=== PATIENT | female | born 1950 | race Caucasian/White ===

== ENCOUNTER → 2020-08-12 08:43 | Outpatient (CLI) | payer OTHER, SELFPAY | PROVIDERS: Family Provider Internal Medicine Geriatric Medicine; PCP Internal Medicine Geriatric Medicine; Visit Provider Nurse Practitioner | DX: N34.3 Urethral syndrome, unspecified (principal) | CPT/HCPCS: 87077; 87086; 87186 ==

== ENCOUNTER → 2020-11-24 11:50 | Outpatient (CLI) | payer OTHER, SELFPAY | PROVIDERS: Family Provider Internal Medicine Geriatric Medicine; PCP Internal Medicine Geriatric Medicine; Visit Provider Physician Assistant | DX: N30.01 Acute cystitis with hematuria (principal) | CPT/HCPCS: 87086 ==

== ENCOUNTER → 2021-03-09 13:40 | Outpatient (CLI) | payer OTHER, SELFPAY | PROVIDERS: Family Provider Internal Medicine Geriatric Medicine; PCP Internal Medicine Geriatric Medicine; Visit Provider Nurse Practitioner Family | DX: N34.3 Urethral syndrome, unspecified (principal) | CPT/HCPCS: 87077; 87086; 87186 ==

== ENCOUNTER → 2022-07-03 08:10 | Outpatient (CLI) | payer OTHER, SELFPAY ==
[2022-07-03 08:35] LABS: Add Manual Diff / Slide Review NO; Basophils Absolute Auto 0 /uL (0-100); Basophils Percent Auto 0.5 % (0-2); Eosinophils Absolute Auto 200 /uL (0-450); Eosinophils Percent Auto 3.8 % (2-4); Hematocrit 40.9 % (36-46); Hemoglobin 13.8 g/dL (12.0-16.0); Lymphocytes Absolute Auto 1000 /uL (1100-4500); Mean Corpuscular HGB Conc 33.7 % (30-36); Mean Corpuscular Hemoglobin 30.5 PG (26-34); Mean Corpuscular Volume 90.5 fL (80-100); Monocytes Absolute Auto 700 /uL (0-900); Monocytes Percent Auto 11.9 % (3-14); Neutrophils Absolute Auto 4100 /uL (1500-7000); Neutrophils Percent Auto 67.8 % (50-75); Platelet Count 317 X10^3/uL (150-400); Red Blood Cell Count 4.52 X10^6/uL (4.0-5.2)
[2022-07-03 08:43] LABS: Hemoglobin A1C% w Est Avg Glu 5.6 % (4.0-6.0)
[2022-07-03 09:04] LABS: Alanine Aminotransferase 20 IU/L (<35); Albumin Globulin Ratio 1.4 (1.0-2.8); Alkaline Phosphatase 57 U/L (38-126); Aspartate Aminotransferase 17 IU/L (14-36); BUN Creatinine Ratio 19.7 (6-22); Bilirubin Total 0.6 mg/dL (0.2-1.3); Blood Urea Nitrogen 14 mg/dL (7-17); Calcium 9.2 mg/dL (8.4-10.2); Carbon Dioxide 24 mmol/L (22-32); Chloride 108 mmol/L (98-107); Cholesterol 168 mg/dL (140-199); Estimated Glomerular Filt Rate > 60 mL/min (>60); Globulin 2.9 g/dL (1.7-4.1); Glucose 99 mg/dL (80-110); HDL Cholesterol 54 mg/dL (40-60); HEMOLYSIS < 15 (0-50); LDL Cholesterol Calculated 102 mg/dL (<100); Potassium 4.4 mmol/L (3.4-5.1); Sodium 139 mmol/L (137-145); Total Protein 6.9 g/dL (6.3-8.2); Triglycerides 59 mg/dL (35-150)
[2022-07-03 09:31] LABS: TSH w/ Reflex to FT4 1.58 uIU/mL (0.47-4.68)
== END ==
PROVIDERS: Family Provider Internal Medicine Geriatric Medicine; PCP Internal Medicine Geriatric Medicine; Referring Provider Internal Medicine Geriatric Medicine; Visit Provider Internal Medicine Geriatric Medicine
DX: I10 Essential (primary) hypertension (principal); Z00.00 Encounter for general adult medical examination without abnormal findings; R00.0 Tachycardia, unspecified
CPT/HCPCS: 36415; 80053; 80061; 83036; 84443; 85025

== ENCOUNTER → 2024-01-20 08:42 | Outpatient (CLI) | payer OTHER, SELFPAY ==
--- NOTE | 2024-01-20 08:45 | EKG_ITS ---
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
[2024-01-20 09:56] LABS: Add Manual Diff / Slide Review NO; Basophils Absolute Auto 100 /uL (0-100); Basophils Percent Auto 0.7 % (0-2); Eosinophils Absolute Auto 200 /uL (0-450); Eosinophils Percent Auto 2.8 % (2-4); Hematocrit 38.2 % (36-46); Hemoglobin 12.9 g/dL (12.0-16.0); Lymphocytes Absolute Auto 1000 /uL (1100-4500); Lymphocytes Percent Auto 13.3 % (25-40); Mean Corpuscular HGB Conc 33.6 % (30-36); Mean Corpuscular Hemoglobin 30.9 PG (26-34); Mean Corpuscular Volume 91.8 fL (80-100); Monocytes Absolute Auto 900 /uL (0-900); Monocytes Percent Auto 12.5 % (3-14); Neutrophils Absolute Auto 5200 /uL (1500-7000); Neutrophils Percent Auto 70.7 % (50-75); Platelet Count 338 X10^3/uL (150-400); Red Blood Cell Count 4.16 X10^6/uL (4.0-5.2); Red Cell Distribution Width 14.4 % (11.6-14.8); White Blood Cell Count 7.3 X10^3/uL (4.5-11.0)
[2024-01-20 10:15] LABS: Appearance Urine UA CLEAR; Bilirubin Urine UA NEGATIVE (NEGATIVE); Color Urine UA YELLOW; Glucose Urine UA NEGATIVE (Negative); Ketones Urine UA NEGATIVE (NEGATIVE); Leukocyte Esterase Urine UA 2+ (NEGATIVE); Nitrite Urine UA NEGATIVE (Negative); Occult Blood Urine UA TRACE-INTACT (Negative); Protein Urine UA NEGATIVE (Negative); Urobilinogen Urine UA 0.2 E.U./dL (0.2)
[2024-01-20 10:17] LABS: pH Urine UA 6.5 (4.5-8.0)
[2024-01-20 10:20] LABS: Hemoglobin A1C% w Est Avg Glu 5.1 % (4.0-6.0)
[2024-01-20 10:23] LABS: Urine Volume Low Vol <10mL (spun)
[2024-01-20 10:24] LABS: Bacteria Urine None Seen; Blood Urea Nitrogen 15 mg/dL (7-17); Calcium 9.2 mg/dL (8.4-10.2); Carbon Dioxide 21 mmol/L (22-32); Chloride 108 mmol/L (98-107); Culture Indicated Urine Specimen Cultured; Estimated Glomerular Filt Rate > 60 mL/min (>60); Glucose 91 mg/dL (80-110); HEMOLYSIS < 15 (0-50); Potassium 5.1 mmol/L (3.4-5.1); RBC Urine 0-1/HPF (0-5/HPF); Sodium 137 mmol/L (137-145); Squamous Epithelial Cell Urine 5-10 /HPF (0-5/HPF); WBC Urine 5-10/HPF (0-5/HPF)
== END ==
PROVIDERS: Family Provider Internal Medicine Geriatric Medicine; PCP Internal Medicine Geriatric Medicine; Referring Provider Orthopaedic Surgery; Visit Provider Orthopaedic Surgery
DX: Z01.818 Encounter for other preprocedural examination (principal); R73.9 Hyperglycemia, unspecified; Z01.812 Encounter for preprocedural laboratory examination; N39.0 Urinary tract infection, site not specified
CPT/HCPCS: 36415; 80048; 81001; 83036; 85025; 87086; 93005; 93010

== ENCOUNTER → 2024-11-20 10:51 | Outpatient (CLI) | payer OTHER, SELFPAY ==
--- NOTE | 2024-11-20 11:20 | EKG_ITS ---
[place] [address] [place] [id number] Test Date: 2024-11-20 Pat Name: Monica Cisneros Department: [facility] Room: Gender: Female Manager Radiation: WES : 1950 Requested By: Order Number: [id number] Reading MD: Chente Pearson MD Measurements Intervals [place] Rate: 73 P: 50 NH: 162 QRS: -11 QRSD: 80 T: 22 QT: 382 QTc: 420 Interpretive Statements Sinus rhythm with occasional premature ventricular complexes Electronically Signed On 11-23-2024 15:02:24 PDT by Chente Pearson MD
[2024-11-20 11:36] LABS: Hemoglobin A1C% w Est Avg Glu 5.4 % (4.0-6.0)
[2024-11-20 11:50] LABS: Add Manual Diff / Slide Review NO; Basophils Absolute Auto 0 /uL (0-100); Basophils Percent Auto 0.4 % (0-2); Eosinophils Absolute Auto 200 /uL (0-450); Eosinophils Percent Auto 3.4 % (2-4); Hematocrit 38.5 % (36-46); Hemoglobin 13.1 g/dL (12.0-16.0); Lymphocytes Absolute Auto 1000 /uL (1100-4500); Lymphocytes Percent Auto 14.9 % (25-40); Mean Corpuscular Hemoglobin 31.1 PG (26-34); Mean Corpuscular Volume 91.3 fL (80-100); Monocytes Absolute Auto 800 /uL (0-900); Monocytes Percent Auto 12.3 % (3-14); Neutrophils Absolute Auto 4500 /uL (1500-7000); Platelet Count 354 X10^3/uL (150-400); Red Blood Cell Count 4.22 X10^6/uL (4.0-5.2); Red Cell Distribution Width 15.1 % (11.6-14.8); White Blood Cell Count 6.5 X10^3/uL (4.5-11.0)
[2024-11-20 12:30] LABS: Alanine Aminotransferase 17 IU/L (<35); Albumin Globulin Ratio 1.5 (1.0-2.8); Alkaline Phosphatase 69 U/L (38-126); Aspartate Aminotransferase 19 IU/L (14-36); BUN Creatinine Ratio 22.5 (6-22); Bilirubin Total 0.5 mg/dL (0.2-1.3); Blood Urea Nitrogen 16 mg/dL (7-17); Calcium 9.1 mg/dL (8.4-10.2); Carbon Dioxide 23 mmol/L (22-32); Chloride 106 mmol/L (98-107); Estimated Glomerular Filt Rate > 60 mL/min (>60); Globulin 2.6 g/dL (1.7-4.1); Glucose 93 mg/dL (70-99); HEMOLYSIS < 15 (0-50); Potassium 4.7 mmol/L (3.4-5.1); Sodium 137 mmol/L (137-145); Total Protein 6.6 g/dL (6.3-8.2)
[2024-11-20 13:54] LABS: Appearance Urine UA CLEAR; Bilirubin Urine UA NEGATIVE (NEGATIVE); Color Urine UA YELLOW; Glucose Urine UA NEGATIVE (Negative); Ketones Urine UA NEGATIVE (NEGATIVE); Leukocyte Esterase Urine UA 1+ (NEGATIVE); Nitrite Urine UA NEGATIVE (Negative); Occult Blood Urine UA NEGATIVE (Negative); Protein Urine UA NEGATIVE (Negative); Specific Gravity Urine UA 1.015 (1.000-1.035); Urobilinogen Urine UA 0.2 E.U./dL (0.2)
[2024-11-20 14:41] LABS: Bacteria Urine Occasional (0-1); Culture Indicated Urine Specimen Cultured; RBC Urine 0-1/HPF (0-5/HPF); Squamous Epithelial Cell Urine 1-5 /HPF (0-5/HPF); Urine Volume 10mL (spun); WBC Urine 0-1/HPF (0-5/HPF)
== END ==
PROVIDERS: Family Provider Internal Medicine Geriatric Medicine; PCP Internal Medicine Geriatric Medicine; Referring Provider Internal Medicine Geriatric Medicine; Visit Provider Orthopaedic Surgery
DX: Z01.812 Encounter for preprocedural laboratory examination (principal); Z01.818 Encounter for other preprocedural examination; N39.0 Urinary tract infection, site not specified; R73.9 Hyperglycemia, unspecified
CPT/HCPCS: 36415; 80053; 81001; 83036; 85025; 87086; 93005; 93010

== ENCOUNTER 2024-12-15 09:03 | Day surgery (SDC) | payer OTHER, SELFPAY ==
[2024-12-10 09:28] VITALS: BMI 30.8
[2024-12-15] VITALS (17 sets, daily range): BP systolic 118–168; BP diastolic 57–85; PULSE 75–87; RESP 16–23; TEMP 35.8–36.8; O2SAT 93–100; BMI 29.7
--- NOTE | 2024-12-15 06:00 | DI.RAD.S_ITS ---
PROCEDURE: XR KNEE RT 1TO2V INDICATIONS: TKA TECHNIQUE: 2 view(s) of the knee acquired. COMPARISON: None. FINDINGS: Bones: Patient is status post knee joint arthroplasty. Hardware components are in expected positions. Visualized bony structures are intact. Soft tissues: Overlying postoperative changes are noted. IMPRESSION: Expected post-operative appearance of a knee arthroplasty. Dictated by: Yahir Flores M.D. on 12/15/2024 at 15:24 Approved by: Yahir Flores M.D. on 12/15/2024 at 15:24
[2024-12-15] MEDS: CELECOXIB 200 MG CAPSULE 400 MG PO (09:54)
[2024-12-15] MEDS: ACETAMINOPHEN 325 MG TABLET 975 MG PO (09:54)
[2024-12-15] MEDS: VANCOMYCIN 1,000 MG in SODIUM CHLORIDE 0.9% 250 ML 250 MG IV (09:57)
--- NOTE | 2024-12-15 10:27 | PM.PREOP ---
Pre-operative Note Interval Note History & Physical reviewed/Exam performed by Physician: Yes Changes to H&P: No
--- NOTE | 2024-12-15 10:27 | PM.OP.1 ---
Operative Date/Time/Diagnoses Date of procedure: 12/15/24 Time of procedure: 11:20 Pre-op diagnosis: Right knee OA Post-op diagnosis: same Procedure & Clinicians Procedure: Right total knee arthroplasty Same procedure(s) as scheduled: Yes Indications: The patient has had progressively worsening right knee pain with radiographic changes consistent with arthritis. Non-operative management has failed and the patient has requested total knee replacement. The risks, benefits and alternatives to surgery were discussed with the patient prior to proceeding. Risks discussed included, but were not limited to, failure to relieve pain, stiffness, infection, nerve damage, deep venous thrombosis, pulmonary embolism, stroke, coma, heart attack, permanent paralysis and , as well as the potential need for eventual revision of the prosthetic. Surgeon: Anna Oliva Dealer Support Technician: Nathaniel Sparks Anesthesia Type: Spinal and Peripheral nerve block Operative Notes Findings: Severe right knee OA, adequate stability Closure Type: primary Specimen(s): none sent Prosthetic devices, grafts, tissues, transplants, or devices: Oliva and nephew cassie BCS2 size 6 femur, size 5 tibia, poly 9, patella 35 by 7.5 Applied: none Estimated Blood Loss (mL): 250 Blood products transfused: none Tourniquet time (min): 92 Procedure in detail: The patient was seen in the pre-operative area, where the patient identified the right knee as the operative site and this was marked with my initials. The patient received pre-operative antibiotics, and was taken to the operating room and placed on the operative table in the supine position. After satisfactory anesthesia, a it infrastructure manager out was performed. The right leg was encircled with a tourniquet about the proximal thigh, and the leg was prepared from the toes to the tourniquet with ChloroPrep in the usual fashion and draped through sterile drapes. The leg was elevated and exsanguinated with Eschmark bandage and the tourniquet inflated to [250] mmHg pressure. A PA was used during the procedure and was essential for intraoperative retraction and safe implantation of the components. The knee was approached through an approximately 18 cm incision centered over the patella and carried into the knee through a medial parapatellar arthrotomy. Portion of the medial and lateral meniscus was resected. Soft tissue was carefully mobilized around the patella the patella was measured with a caliper. Bone was resected from the patella and the patellar height was reconstituted with up an appropriate sized patellar component. A cover was then placed on the patella. A small amount of additional medial and lateral meniscus was resected. Cori pins were placed and the knee was meticulously mapped. Robotic assisted plan was developed. The Cori robotic bur was used for the distal femoral cut. It looked like an appropriate distal femoral cut and the cut was made without difficulty. The rotation was assessed and the appropriate size femoral guide was placed on the distal femur and finishing cuts were made. There was no evidence of notching. The anterior, posterior and chamfer cuts were then made. The posterior osteophytes and soft tissues were then removed. The posterior capsule was injected with part of a mixture of 60 ml 0.25% Marcaine mixed with 20 ml Exparel for post operative pain control. The remainder of this mixture was injected into the capsule and subcutaneous tissues during cement curing. A PA was used during the procedure and was essential for intraoperative retraction and safe implantation of the components. The tibial guide was meticulously navigated. Proximal femoral cut was made without difficulty. The rotation was assessed. The patient was placed in extension residual medial and lateral meniscus as well as any residual bone was carefully resected. [No] additional tibia was resected. Hemostasis was achieved especially posteriorly. Additional local was injected into the posterior capsule. The extension gap was assessed. The femoral component was trial was placed and the notch was finished. Trial tibial and femoral components were then placed and the knee placed through a range of motion. Range of motion was [0-130], with good stability throughout the range. The trials were then removed, and the tibia was finished. The bone was prepared with pulsatile lavage, and dried with a sponge. Cement was applied and the final prosthetics placed. Excess cement was removed during and after cement curing. A brief Betadine soak was performed. After confirming there was no extruded cement posteriorly, the final tibial insert was placed. The knee was copiously irrigated and the tourniquet deflated. Hemostasis was obtained with the Bovie cautery. The capsule was closed with interrupted # 1 Vicryl suture. The subcutaneous layer was closed with barbed sutures, and the skin with a running 3-0 V-Lock suture and few rosa m and Surgical glue. An Aquacel Ag dressing was applied and the patient was taken to recovery having tolerated the procedure well. Complications: none Post-operative Condition: stable Disposition: Acute Care Plan for aftercare: The patient will be maintained on a standard total knee replacement protocol with weight bearing as tolerated. The patient will receive Xarelto and sequential compression devices for DVT prophylaxis. The patient will be discharged home when safe for the home environment. She has 8 steps at home and needs to be cleared by therapy prior to DC.
[2024-12-15] MEDS: CEFAZOLIN 2 GM/100 ML PREMIX 100 ML IV ×2 (11:08→18:58)
--- NOTE | 2024-12-15 11:30 | SUR.OPER ---
Supine on padded OR bed. Pillow under head, arms secured on padded armboards <90 degree abduction. Safety belt across torso. Non-operative leg secured with tape over blanket over lower leg. Operative leg secured in DeMayo/Rasta/Nathe positioner. Foam padded brace at thigh of operative leg.
[2024-12-15] MEDS: BUPIVACAINE LIPOSOME 266 MG/20 ML VIAL INJ (11:51)
[2024-12-15] MEDS: BUPIVACAINE 0.25% W/ EPI 30 ML VIAL INJ (11:52)
[2024-12-15] MEDS: LACTATED RINGERS 1,000 ML 42 ML IV (12:02)
[2024-12-15] MEDS: OXYCODONE IR 5 MG TABLET PO ×3 (13:56→20:29)
[2024-12-15] MEDS: hydrOXYzine 50 MG/ML INJ 25 MG IM (14:13)
[2024-12-15] MEDS: ONDANSETRON 4 MG/2 ML INJ IV (14:37)
--- NOTE | 2024-12-15 15:12 | OT.IPNOTE ---
Pt coming from PACU but not ready to get up at this time per nursing. To check on pt tomorrow for OT john.
--- NOTE | 2024-12-15 15:14 | PT-IP ANOTE ---
PT consult received post-op. Pt is down in the PACU and will come up to floor. Per nsg, pt is not awake or ready for therapy. Will initiate PT assessment next date.
[2024-12-15] MEDS: LACTATED RINGERS 1,000 ML 100 ML IV (16:35)
[2024-12-15] MEDS: ACETAMINOPHEN 325 MG TABLET 650 MG PO ×2 (17:50→22:51)
--- NOTE | 2024-12-15 18:48 | PC.NURSE ---
Patient arrived from PACU at 1545. She is initially pretty numb on BLE's > R side. She is A&OX4, VSS,afebrile on RA. Initially she reports pain to R knee is very minimal at 2/10. She is assisted to reposition. Visitors at bedside this evening for about an hour. Patient reports having last voided at 0700 a.m. and bladder scan this afternoon is 316ml. She does not feel the urge to void, straight cath resulted in 500 m. IVF LR, SCD's on, POST OP VS, q2 turn. Asher dressing flashing green light, jordi wrap c/d/i. Patient tolerates dinner well, increasing sensation to BLE's. MD at bedside this evening evaluating patient requesting to get patient to edge of bed and stand. IV antibiotics hanging after patient finished dinner, completed admission/physical assessment. Continuous montioring.
[2024-12-15] MEDS: DOCUSATE 100 MG CAPSULE PO (20:29)
[2024-12-15] MEDS: ASPIRIN EC 81 MG TABLET PO (20:29)
[2024-12-15] MEDS: PREGABALIN 25 MG CAPSULE PO (20:30)
[2024-12-16] MEDS: OXYCODONE IR 5 MG TABLET PO ×5 (02:23→15:10)
[2024-12-16] MEDS: IBUPROFEN 400 MG TABLET PO ×2 (02:23→06:20)
[2024-12-16] MEDS: CEFAZOLIN 2 GM/100 ML PREMIX 100 ML IV (02:33)
[2024-12-16] MEDS: LACTATED RINGERS 1,000 ML 100 ML IV (02:33)
[2024-12-16] MEDS: ACETAMINOPHEN 325 MG TABLET 650 MG PO ×3 (04:09→15:10)
[2024-12-16 06:18] VITALS: BP 118/62; PULSE 73; RESP 20; TEMP 37; O2SAT 96
[2024-12-16 06:32] LABS: Hematocrit 31.1 % (36-46); Hemoglobin 10.8 g/dL (12.0-16.0)
--- NOTE | 2024-12-16 07:33 | PM.DS.1 ---
History of Present Illness History of Present Illness Date Patient Seen: 12/16/24 Time Patient Seen: 07:00 Chief complaint: OPB Narrative: The patient has had progressively worsening right knee pain with radiographic changes consistent with arthritis. Non-operative management has failed and the patient has requested total knee replacement. The risks, benefits and alternatives to surgery were discussed with the patient prior to proceeding. Risks discussed included, but were not limited to, failure to relieve pain, stiffness, infection, nerve damage, deep venous thrombosis, pulmonary embolism, stroke, coma, heart attack, permanent paralysis and , as well as the potential need for eventual revision of the prosthetic. Discharge Providers Provider Discharge Date: 12/16/24 Primary care physician: Madeleine Rajput MD Consults: 12/15/24 06:00 Consult to Anesthesiology Routine Comment: Consulting Provider: Anesthesiologist Reason for consultation: Regional block for post operative pain control Has provider been notified: No 12/15/24 14:38 Consult to Discharge Planning Routine Comment: Consult to Occupational Therapy Evaluate & Treat Comment: Physician Instructions: Evaluate and treat Consult to Physical Therapy Evaluate & Treat Comment: Physician Instructions: postop TKA protocol 12/15/24 14:45 Consult to Physical Therapy Evaluate & Treat Comment: patient is in PACU department Physician Instructions: Evaluate and Treat Discharge provider: Nathaniel Sparks PA-C Summary Hospital Course Discharge Diagnosis: Right knee OA Hospital Course: Procedure & Clinicians Procedure: Right total knee arthroplasty Same procedure(s) as scheduled: Yes Surgeon: Anna Oliva Learning And Development Administrator: Nathaniel Sparks Anesthesia Type: Spinal and Peripheral nerve block Operative Notes Findings: Severe right knee OA, adequate stability Closure Type: primary Specimen(s): none sent Prosthetic devices, grafts, tissues, transplants, or devices: Oliva and nephew journey BCS2 size 6 femur, size 5 tibia, poly 9, patella 35 by 7.5 Applied: none Estimated Blood Loss (mL): 250 Blood products transfused: none Tourniquet time (min): 92 Status at Discharge Cognitive/behavioral status at discharge: oriented Functional status at discharge: uses cane/walker Overall status at discharge: patient is back to baseline Time Spent with Patient Time spent: Less than 30 minutes Exam Vital Signs (past 8 hours): - 12/16/24 06:18 Temperature 98.6 F Pulse Rate 73 Respiratory Rate 20 Blood Pressure 118/62 Pulse Oximetry 96 Oxygen Delivery Method Room Air Oxygen Flow Rate 0 Narrative Exam Narrative: Patient's pain is controlled with oral medication. ?Pain is localized to surgical site. ?Patient declines any new numbness or tingling at the surgical extremity. ?Patient denies any shortness of breath, dizziness, light-headedness, nausea, vomiting, fever or chills. 5/5 strength in hip flexors, quadriceps, hamstrings, DF, PF, EHL bilaterally. Sensation to light touch intact throughout BLE. Calves soft, compressible, nontender. Dressing placed intraoperatively CDI. Resp Effort & Inspection: normal respiratory effort and able to speak in complete sentences Objective Labs 12/16/24 05:30 Labs: Laboratory Results - last 24 hr 12/16/24 05:30 Hgb 10.8 L Hct 31.1 L PFSH Medical History (Updated 12/10/24 @ 11:43 by Yanet Peng RN) Personal history of radiation therapy Personal history of chemotherapy Infiltrating ductal carcinoma of left breast (06/2016) Anemia Bilateral corneal abrasions Abdominal hematoma (~2016) Pulmonary embolism (~2016) DVT (deep venous thrombosis) (~2016) Urinary incontinence Nephrolithiasis Endometrial cancer, grade I Primary osteoarthritis of both knees Tachycardia HTN (hypertension) Atrophic vaginitis Recurrent cystitis B12 deficiency Neuropathy Osteopenia GERD (gastroesophageal reflux disease) No significant medical problems Surgical History (Updated 12/10/24 @ 10:09 by Yanet Peng RN) S/P lumpectomy, left breast (12/2016) H/O total hysterectomy with bilateral salpingo-oophorectomy (BSO) (05/11/24) Social History household members: none Smoking Status: Never smoker alcohol intake: current Discharge Assessment & Plan Assessment and Plan Assessment: Status post right total arthroplasty Plan of Treatment: Discharge to home. ? Ambulate and weight bear as tolerated with assistive devices. ? Xarelto 20 mg daily for 4 weeks for DVT prevention. ? Baseline pain relief with acetaminophen 500mg every 4 hours as needed. ?Patient has been prescribed oxycodone 5 mg every 4 ?hours as needed for breakthrough pain. ? Initiate physical therapy in the next 5-10 days. ? Keep dressing clean and dry. Keep dressing on until first office visit. If dressing becomes dirty or disrupted, replace with appropriate sized dressing. Follow up in clinic in 2 weeks for wound check. Contact clinic if there are any questions or concerns. Discharge Plan Discharge Plan Patient Disposition: Home Provider Discharge Comment: DC pending PT approval Discharge orders & Medications Discharge Orders: Discharge (Order); Ordered 12/16/24 Ordered By: Nathaniel Sparks Prescriptions: Continued cholecalciferol (vitamin D3) 2,000 unit capsule 2,000 unit PO DAILY lisinopril 5 mg tablet 5 mg PO DAILY pregabalin 25 mg capsule 25 mg PO ONCE PM cyanocobalamin (vitamin B-12) 2,500 mcg tablet, sublingual 2,500 mcg sublingual DAILY fluticasone propionate [Flonase Allergy Relief] 50 mcg/actuation spray,suspension 2 spray intranasal DAILY PRN (Reason: allergy symptoms) Rx Instructions: administer into each nostril Discontinued aspirin [Adult Aspirin Regimen] 81 mg tablet,delayed release (DR/EC) 81 mg PO DAILY ibuprofen 200 mg capsule 400 mg PO QID PRN (Reason: pain) naproxen sodium [Aleve] 220 mg capsule 220 mg PO QAM Follow up/Referrals: Madeleine Rajput MD [Primary Care Provider, Medical] Diet/Activity/Treatments Diet: Diet as Tolerated Activity: Ambulate multiple times a day. Cold/Heat Therapy: Use ice multiple times a day up to 10 or more. Other treatments: Start Xarelto for DVT prophylaxis today. Script sent to pharmacy. Hold aspirin Skin/Wound/Dressing Care Skin care: Okay to shower. Report to your healthcare provider any signs of infection, such as:: chills, fever, night sweats, increased pain, unusual drainage and unusual redness Dressing: Leave dressing on. Remove Jeremy wrap in 24-48 hours. Visit Report/Discharge Packet Instructions: DI for Knee Replacement, DI for Prescription Opioid Use Stand Alone Forms: Patient Portal/API, Surgery Discharge Print Language: Nam[place]ian Discharge Data Primary Care Provider: Madeleine Rajput Attending Provider: Anna Oliva VTE Deep Vein Thrombosis/Pulmonary Embolism Present on Admission: No
[2024-12-16 08:00] VITALS: BP 119/70; PULSE 67; RESP 15; TEMP 36.6; O2SAT 92
[2024-12-16] MEDS: DOCUSATE 100 MG CAPSULE PO (08:14)
[2024-12-16 08:15] VITALS: BP 117/70; PULSE 70
[2024-12-16] MEDS: CHOLECALCIFEROL (VITAMIN D3) 1,000 UNIT TABLET 2000 UNIT PO (08:15)
[2024-12-16] MEDS: ASPIRIN EC 81 MG TABLET PO (08:15)
[2024-12-16] MEDS: CYANOCOBALAMIN (VITAMIN B-12) 500 MCG TABLET 2500 MCG PO (08:15)
--- NOTE | 2024-12-16 09:47 | OT.IP.EVAL ---
Current Diagnoses Unilateral primary osteoarthritis, right knee (12/15/24) Surgery Performed Operation Date: 12/15/24 10:45 Actual Procedures p Total Knee Arthroplasty - Robot(Right) - Anna Oliva MD Past Medical History (Last Updated 12/10/24 @ 11:43 by Yanet Peng, RN) Abdominal hematoma (~2016) Anemia Atrophic vaginitis B12 deficiency Bilateral corneal abrasions DVT (deep venous thrombosis) (~2016) Endometrial cancer, grade I GERD (gastroesophageal reflux disease) HTN (hypertension) Infiltrating ductal carcinoma of left breast (06/2016) Nephrolithiasis Neuropathy No significant medical problems Osteopenia Personal history of chemotherapy Personal history of radiation therapy Primary osteoarthritis of both knees Pulmonary embolism (~2016) Recurrent cystitis Tachycardia Urinary incontinence Surgical History (Last Updated 12/10/24 @ 10:09 by Yanet Peng, RN) H/O total hysterectomy with bilateral salpingo-oophorectomy (BSO) (05/11/24) S/P lumpectomy, left breast (12/2016) Occupational Therapy Inpatient Evaluation/Re-Eval M1 PT/OT-IP Prior Functional Status Start: 12/16/24 08:26 Freq: NEEDED Status: Active Protocol: Document 12/16/24 09:12 MB (Rec: 12/16/24 10:59 MB Desktop) Medical Review Prior Functional Status Medical History Yes Reviewed Diet/Fluid Regular Consistency Communication WNLs Mobility and Gait Mod I with cane or hiking stick Activities of Daily I, works two days a week at [employer] and IADL's Social History Household Members none Living Arrangements House Number of Floors ( One Floor Floors) Number of Stairs To 8 steps with B wide rails to enter Enter/Railing? 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 Activities of Daily Pt able to do all ADL and IADL needs with increased Living and IADL's time and pain. Prior Functional Pt to have friend to stay until Saturday and have family Level (Other details stay if possible. ) Social History Living Arrangements House Number of Floors ( One Floor Floors) Number of Stairs To 8 steps with wide bilateral rails. Enter/Railing? Home Environment High Toilet,Walk in Shower Home Equipment Raised Toilet Seat w/Armrests,Shower Seat without Backrest,Hand Held Shower,Grab Bars Near Toilet,Grab Bars In Shower Additional Social Pt has a toilet safety frame. History Comment Pt has an adjustable bed. M2 OT-IP Current Condition Start: 12/16/24 10:38 Freq: Status: Active Protocol: Document 12/16/24 10:38 [facility] (Rec: 12/16/24 10:59 [facility] Desktop) Occupational Therapy Current Condition Current Condition Evaluation Date 12/16/24 Treatment Diagnosis S/P R TKA Diagnosis Onset Date 12/15/24 Weight Bearing Status Weight Bearing Weight Bear as Tolerated Status M3 OT- IP Subjective and Pain Start: 12/16/24 10:38 Freq: Status: Active Protocol: Document 12/16/24 10:38 [facility] (Rec: 12/16/24 10:59 [facility] Desktop) OT- Subjective Occupational Therapy Visit Type Type Initial Evaluation Visit Start Time 09:10 Visit Stop Time 09:47 Occupational Therapy Visit Comments Patient Comments Pt agreed to get dressed and do the steps. Patient/Caregiver TO go home. Goals OT Pain Assessment Pain When Pain Assessed At Rest Pain Present Pain Present Pain Reported Location right knee Intensity 4 Scale Used Numeric (0 - 10) M4 OT- IP ADL's Start: 12/16/24 10:38 Freq: Status: Active Protocol: Document 12/16/24 10:38 [facility] (Rec: 12/16/24 10:59 [facility] Desktop) OT QGF-Ipip-Deddiid General Evaluation Self-Feeding Ability Independent OT ADL-Grooming Comments OT Grooming Comments Not performed. OT ADL-Oral Care Comments Oral Care Comments Not observed. OT ADL-Dressing General Eval Lower Body Dressing Maximum Assistance Ability Areas Needing Underpants/Brief,Pants/Shorts,Socks Assistance Comments OT Dressing Comments Educated pt use LB dressing equipment and able to practice. Educated to dress the RLE first and take out last. OT ADL-Toileting Comments OT Toileting Educated best to be mindful of her RLE positioning Comments during ADL needs and not to twist her knee. OT ADL-Bathing Comments OT Bathing Comments Went over best to cover the bandage for showering needs and have assist. M5 OT- IP IADL's Start: 12/16/24 10:38 Freq: Status: Active Protocol: Document 12/16/24 10:38 [facility] (Rec: 12/16/24 10:59 [facility] Desktop) OT-Instrumental Activities of Daily Living Home Safety Awareness Awareness of Need Good Awareness for Assistance at Home Ability to Problem Able to Problem Solve Solve Emergency Situations Meal Preparation Meal Preparation Pt will benefit from assist. 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 Comments Driving Driving Concerns Identified Regarding Safety M6 OT- IP Functional Cognition Start: 12/16/24 10:38 Freq: Status: Active Protocol: Document 12/16/24 10:38 [facility] (Rec: 12/16/24 10:59 [facility] Desktop) Cognitive Factors Limiting Selfcare Function Cognitive Ability Level of Alertness Alert Patient Orientation Name,Age,Birthday,Month,Date,Year,Day of Week,Place, Situation Attention Span Capable of Focused Attention,Capable of Sustained Ability Attention Ability to Follow Able to Follow One Step Commands Commands Cognitive Comments Cognitive Assessment Pt able to follow commands for ADL and mobility needs. Comments M7 OT- IP Mobility and Balance Start: 12/16/24 10:38 Freq: Status: Active Protocol: Document 12/16/24 10:38 [facility] (Rec: 12/16/24 10:59 [facility] Desktop) OT- Bed Mobility Assessment Supine to Sit Supine to Sit Assist Standby Assistance Sit to Supine Sit to Supine Assist Standby Assistance OT-Transfer Assessment Sit to and From Stand Sit to and from Contact Guard Assistance Stand Transfers Transfer Ability Contact Guard Assistance Technique Transfer Destination Bed,Chair Transfer Technique Stand Step Pivot Devices Transfer Assistive Gait Belt,Front Wheeled Walker Devices Comments Mobility Comments Pt CGA for to stand and walk with the FWW. MOD A x2 for steps as her RLE buckling. Educated to slide the RLE forwards before sitting and standing. OT- Balance Assessment Sitting Balance and Reactions Static Sitting Good Balance Ability Dynamic Sitting Good Balance Ability Standing Balance and Reactions Static Standing Fair Balance Ability Dynamic Standing Poor Balance Ability M8 OT- IP Objective Assessments Start: 12/16/24 10:38 Freq: Status: Active Protocol: Document 12/16/24 10:38 [facility] (Rec: 12/16/24 10:59 [facility] Desktop) OT Gross Range of Motion Upper Extremity Range of Motion Assessment Within Functional Limits OT Strength Upper Extremity Strength Assessment Within Functional Limits M9 OT- IP Assessment and Plan Start: 12/16/24 10:38 Freq: Status: Active Protocol: Document 12/16/24 10:38 [facility] (Rec: 12/16/24 10:59 [facility] Desktop) OT Summary Assessment and Plan Potential Rehabilitation Excellent Potential Analytic Complexity Low at Evaluation Summary OT Impairments Pain,Range of Motion,Balance,Functional Mobility, Grooming,Dressing,Toileting,Bathing,Toilet Transfers, Shower Transfers,Activity Tolerance Progress Towards Slow Progress due to Pain,Slow Progress due to Medical Goals Issues,Slow Progress due to Activity Tolerance Assessment Summary Pt low complexity and main barriers are steps, pain, and buckling at her RLE. Pt would benefit from LB dressing equipment and to get a BSC. At this time best for pt to go to SNF. However if pt progresses and able to do the steps with her friends- to go home with 24/7 assist and start with home health. Goals Self-Feeding Goal Independent Grooming Goal Independent Dressing Goal Minimal Assistance Toileting Goal Standby Assistance Bathing Goal Minimal Assistance Toilet Transfer Goal Standby Assistance Shower Transfer Goal Contact Guard Assistance Days to Meet Goals 7 Frequency of Treatment Other frequency 5x/week Treatment Plan OT Treatment Plan ADL Training,Functional Mobility,Patient/Family Education,Discharge Planning Discharge Recommendations OT Discharge SNF Rehab,Home vs SNF Recommendations Other Discharge If able to do steps home with 24/7 assist and home Recommendations health. Home Equipment Needs LB dressing equipment, BSC Transportation Needs Private Vehicle,Wheelchair/Cabulance at Discharge
[2024-12-16] MEDS: CALCIUM CARBONATE 500 MG TAB 1000 MG PO (10:21)
--- NOTE | 2024-12-16 10:59 | PT.IIE ---
Current Diagnoses Unilateral primary osteoarthritis, right knee (12/15/24) Surgery Performed Operation Date: 12/15/24 10:45 Actual Procedures p Total Knee Arthroplasty - Robot(Right) - Anna Oliva MD Surgical History (Last Updated 12/10/24 @ 10:09 by Yanet Peng, RN) H/O total hysterectomy with bilateral salpingo-oophorectomy (BSO) (05/11/24) S/P lumpectomy, left breast (12/2016) Medical History (Last Updated 12/10/24 @ 11:43 by Yanet Peng, RN) Abdominal hematoma (~2016) Anemia Atrophic vaginitis B12 deficiency Bilateral corneal abrasions DVT (deep venous thrombosis) (~2016) Endometrial cancer, grade I GERD (gastroesophageal reflux disease) HTN (hypertension) Infiltrating ductal carcinoma of left breast (06/2016) Nephrolithiasis Neuropathy No significant medical problems Osteopenia Personal history of chemotherapy Personal history of radiation therapy Primary osteoarthritis of both knees Pulmonary embolism (~2016) Recurrent cystitis Tachycardia Urinary incontinence Physical Therapy Inpatient Evaluation/Re-Eval M1 PT/OT-IP Prior Functional Status Start: 12/16/24 08:26 Freq: NEEDED Status: Active Protocol: Document 12/16/24 09:12 MB (Rec: 12/16/24 10:59 MB Desktop) Medical Review Prior Functional Status Medical History Yes Reviewed Diet/Fluid Regular Consistency Communication WNLs Mobility and Gait Mod I with cane or hiking stick Activities of Daily I, works two days a week at [employer]) and IADL's Social History Household Members none Living Arrangements House Number of Floors ( One Floor Floors) Number of Stairs To 8 steps with B wide rails to enter Enter/Railing? 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 Social Adjustable bed History Comment M2 PT-IP Current Condition Start: 12/16/24 08:26 Freq: NEEDED Status: Active Protocol: Document 12/16/24 09:12 MB (Rec: 12/16/24 10:59 MB Desktop) Physical Therapy Current Condition Current Condition Evaluation Date 12/16/24 Treatment Diagnosis POD1 Right TKA M3 PT-IP Subjective Start: 12/16/24 08:26 Freq: NEEDED Status: Active Protocol: Document 12/16/24 09:12 MB (Rec: 12/16/24 10:59 MB Desktop) Subjective Physical Therapy Visit Type Type Initial Evaluation Visit Start Time 09:12 Visit Stop Time 09:43 Number of MASONRY INSTRUCTOR Visits 0 Physical Therapy Visit Comments Patient Comments Pt reports right knee pain and apprehension about mobility. Therapy Pain Assessment Pain When Pain Assessed At Rest Pain Present Pain Present Pain Reported Location right knee Intensity 5 Scale Used Numeric (0 - 10) M4 PT-IP Mobility and Gait Start: 12/16/24 08:26 Freq: NEEDED Status: Active Protocol: Document 12/16/24 09:12 MB (Rec: 12/16/24 10:59 MB Desktop) PT-Bed Mobility Assessment Rolling Level of Assist Standby Assistance Supine to Sit Supine to Sit Standby Assistance,1 Person Assistance Sit to Supine Sit to Supine Standby Assistance,1 Person Assistance Scooting Scooting to Edge of Standby Assistance Bed PT-Transfer Assessment Sit to and From Stand Sit to and from Contact Guard Assistance,1 Person Assistance,Use of Stand Upper Extremities Equipment Transfer Assistive Gait Belt,Front Wheeled Walker Device Transfers Transfer Destination Bed,Chair,Toilet,Wheelchair Transfer Technique Ambulation Transfer Ability Level of Assist Contact Guard Assistance,1 Person Assistance,Use of Upper Extremities Comments Mobility Comments Pt does plop into w/c for her first stand to sitting from RW and cues to touch w/c, chair and bed with the back of her left leg and ease out the right foot before sitting to decrease forced bending of knee, cues to take her time and reach for chair/push up from chair Gait Assessment Gait Gait Assistance Contact Guard Assist,1 Person Assist Required: Distance (Feet) 25 Able to Maintain Yes Weight Bearing Status During Gait Assistive Devices Assistive Device Gait Belt,Front Wheeled Walker Gait Deviations General Gait Pattern Antalgic,Decreased Stride Length,Decreased Feet Clearance,Flexed Trunk,Step-to Gait,Wide Based Gait Factors Limiting Gait Function Factors Limiting Decreased Activity Tolerance,Decreased Strength, Gait Function Difficulty Following Directions,Incoordination,Limited Range of Motion,Pain,Poor Balance,Poor Safety Awareness Comments Gait Comments 25'x1, 5'x2, 20'x2 antalgic and slow gait BP in RUE in standing is functional with checking this a.m. Stair Climbing Assessment Evaluation Level of Assist On Moderate Assistance,2 Person Assistance Stairs Devices Stair Climbing Right Railing Assistive Devices Technique/Endurance Stair Climbing Ascend and Descend Direction Stair Climbing Step to Step Technique Number of Steps 1 Climbed Query Text: Stair Climbing Set # 1 Repetitions (reps) Comments Stair Climbing Pt facing right rail and both hands on rail, ascend 1 Comments step with left foot first and descend 1 step with right foot first and pt with buckling through right knee and second person guarding the knee. Stopped stair training to return to w/c PT-Balance Assessment Sitting Balance and Reactions Static Sitting Good Balance Ability Dynamic Sitting Fair Balance Ability Standing Balance and Reactions Static Standing Fair Balance Ability Dynamic Standing Fair Balance Ability Device Used RW M5 PT-IP Objective Assessments Start: 12/16/24 08:26 Freq: NEEDED Status: Active Protocol: Document 12/16/24 09:12 MB (Rec: 12/16/24 10:59 MB Desktop) Orientation Orientation/Cognition Level of Alertness Alert Orientation Name,Birthday Language Function No Deficits Noted Ability Safety Awareness Decreased Safety Awareness Memory Description No Deficits Noted Gross Range of Motion Upper Extremity ROM Impairments Defer to OT Lower Extremity ROM Assessment Right Impaired Impairments Very limited right knee ROM in sitting with extension slow and lacking about 45 deg and only passive flexion to about 60 deg, pt with buckling through the right leg with gait Strength Lower Extremity Strength Assessment Right Impaired Comments Strength Comments Pt does not tolerate MMT and right knee strength is no more than 2+/5 Coordination Assessment Gross Coordination Gross Coordination Impaired Sensation Assessment Comments Sensation Comments NT Muscle Tone Muscle Tone WNL Yes Other Assessments Other Other Assessments RLE is edematous and dressed with jordi wrap, edema in B feet M6 PT-IP Treatment Start: 12/16/24 08:26 Freq: NEEDED Status: Active Protocol: Document 12/16/24 09:12 MB (Rec: 12/16/24 10:59 MB Desktop) Physical Therapy Treatment Exercises Exercises Ankle Pumps,Gluteal Sets,Quad Sets,Heel Slides Education Education Provided Weight Bearing Status,Post-Op Packet,Safety Other Treatments Other Treatment Ed on safety with leg and working on exercises in Performed sitting, plan for PT to return around 1315 today and asking her to call her friends to be here to try the steps again to prepare for d/c M7 PT-IP Assessment and Plan Start: 12/16/24 08:26 Freq: NEEDED Status: Active Protocol: Document 12/16/24 09:12 MB (Rec: 12/16/24 10:59 MB Desktop) PT Summary Assessment and Plan Potential Rehabilitation Fair Potential Status of Condition Evolving at Evaluation Summary Impairments Pain,ROM,Strength,Balance,Coordination,Bed Mobility, Transfers,Gait,Activity Tolerance Assessment Summary Pt is a 74 y/o female who is POD1 right TKR. She has a PMH of neuropathy, DVT and CA and has some challenges with mobility today. She presents with right knee weakness and instability with gait, antalgic and imbalance gait and buckling with attempting stair training. Will attempt a second treatment today with her friends in treatment to determine if she can safely mobilize on the steps to get home. Currently recommend SNF at d/c. Goals Bed Mobility Goal Independent Transfer Goal Independent,Front Wheeled Walker Gait Goal Independent,Front Wheel Walker Gait Distance 75 Other Goals Pt will ascend and descend 3 steps facing right rail ascend with both hands on rail with no more than CGA to prepare for safe home entrance. Days to Meet Goals 2 Frequency of Treatment Frequency Of Twice a Day Treatment Treatment Plan Physical Therapy Bed Mobility Training,Transfer Training,Gait Training, Treatment Plan Therapeutic Exercise,Balance Retraining,Post Op Education,Discharge Planning,Hot or Cold Pack, Neuromuscular Re-ed,Coordination Retraining,Manual Therapy Weight Bearing Status Weight Bearing Weight Bear as Tolerated Status Recommendations To Nursing Amount of Assist 1 Person Assist Needed Discharge Recommendations PT Discharge Home vs SNF Recommendations Transportation Needs Private Vehicle at Discharge - PT assist x1-2
--- NOTE | 2024-12-16 14:15 | PT.IPTN ---
Current Diagnoses Unilateral primary osteoarthritis, right knee (12/15/24) Surgery Performed Operation Date: 12/15/24 10:45 Actual Procedures p Total Knee Arthroplasty - Robot(Right) - Anna Oliva MD Physical Therapy Treatment Note M2 PT-IP Current Condition Start: 12/16/24 08:26 Freq: NEEDED Status: Active Protocol: Document 12/16/24 09:12 MB (Rec: 12/16/24 10:59 MB Desktop) Physical Therapy Current Condition Current Condition Evaluation Date 12/16/24 Treatment Diagnosis POD1 Right TKA M3 PT-IP Subjective Start: 12/16/24 08:26 Freq: NEEDED Status: Active Protocol: Document 12/16/24 13:10 MB (Rec: 12/16/24 14:15 MB Desktop) Subjective Physical Therapy Visit Type Type Treatment Note Visit Start Time 13:10 Visit Stop Time 13:50 Number of OIL HEATERMAN Visits 0 Physical Therapy Visit Comments Patient Comments Pt and friends, Paco and Magda, with whom she will d/c to her home, are present for treatment. Pt reports she had pain medication around noon and rested as well. Therapy Pain Assessment Pain When Pain Assessed At Rest Location right knee Scale Used Does not rate, feels better M4 PT-IP Mobility and Gait Start: 12/16/24 08:26 Freq: NEEDED Status: Active Protocol: Document 12/16/24 13:10 MB (Rec: 12/16/24 14:15 MB Desktop) PT-Transfer Assessment Sit to and From Stand Sit to and from Standby Assistance,1 Person Assistance,Use of Upper Stand Extremities Equipment Transfer Assistive Gait Belt,Front Wheeled Walker Device Transfers Transfer Destination Chair,Wheelchair Transfer Technique Ambulation Transfer Ability Level of Assist Standby Assistance,1 Person Assistance,Use of Upper Extremities Comments Mobility Comments Pt does much better preparing for all STS, reaching back for chair, touching back of left leg to chair and w/c, unweighting right leg for mobility. Only one cue needed for hand placement with 6 transfers during treatment Gait Assessment Gait Gait Assistance Standby Assistance,1 Person Assist Required: Distance (Feet) 25 Able to Maintain Yes Weight Bearing Status During Gait Assistive Devices Assistive Device Gait Belt,Front Wheeled Walker Gait Deviations General Gait Pattern Antalgic,Decreased Stride Length,Decreased Feet Clearance,Flexed Trunk,Step-to Gait,Wide Based Gait Factors Limiting Gait Function Factors Limiting Decreased Activity Tolerance,Decreased Strength, Gait Function Difficulty Following Directions,Incoordination,Limited Range of Motion,Pain,Poor Balance,Poor Safety Awareness Comments Gait Comments 25'x1, 5'x2, 15'x1 Stair Climbing Assessment Evaluation Level of Assist On Contact Guard Assistance,1 Person Assistance Stairs Devices Stair Climbing Right Railing Assistive Devices Technique/Endurance Stair Climbing Ascend and Descend Direction Stair Climbing Step to Step Technique Number of Steps 3 Climbed Stair Climbing Set # 1 Repetitions (reps) Comments Stair Climbing Pt facing right rail and both hands on rail, ascend 1 Comments step with left foot first and descend with right foot first, pt without buckling right foot this afternoon. Friends nearby and reviewed how to lightly assist at gait belt and leg pt do the work, reviewed how to position walker, reviewed transfers from the car and that getting pt's car that is lower may be a better option for d/c, discussed benefits of HHPT at d/c PT-Balance Assessment Sitting Balance and Reactions Static Sitting Good Balance Ability Dynamic Sitting Fair Balance Ability Standing Balance and Reactions Static Standing Fair Balance Ability Dynamic Standing Fair Balance Ability Device Used RW M5 PT-IP Objective Assessments Start: 12/16/24 08:26 Freq: NEEDED Status: Active Protocol: Document 12/16/24 09:12 MB (Rec: 12/16/24 10:59 MB Desktop) Orientation Orientation/Cognition Level of Alertness Alert Orientation Name,Birthday Language Function No Deficits Noted Ability Safety Awareness Decreased Safety Awareness Memory Description No Deficits Noted Gross Range of Motion Upper Extremity ROM Impairments Defer to OT Lower Extremity ROM Assessment Right Impaired Impairments Very limited right knee ROM in sitting with extension slow and lacking about 45 deg and only passive flexion to about 60 deg, pt with buckling through the right leg with gait Strength Lower Extremity Strength Assessment Right Impaired Comments Strength Comments Pt does not tolerate MMT and right knee strength is no more than 2+/5 Coordination Assessment Gross Coordination Gross Coordination Impaired Sensation Assessment Comments Sensation Comments NT Muscle Tone Muscle Tone WNL Yes Other Assessments Other Other Assessments RLE is edematous and dressed with jordi wrap, edema in B feet M6 PT-IP Treatment Start: 12/16/24 08:26 Freq: NEEDED Status: Active Protocol: Document 12/16/24 13:10 MB (Rec: 12/16/24 14:15 MB Desktop) Physical Therapy Treatment Exercises Exercises Ankle Pumps M7 PT-IP Assessment and Plan Start: 12/16/24 08:26 Freq: NEEDED Status: Active Protocol: Document 12/16/24 13:10 MB (Rec: 12/16/24 14:15 MB Desktop) PT Summary Assessment and Plan Potential Rehabilitation Fair Potential Status of Condition Evolving at Evaluation Summary Impairments Pain,ROM,Strength,Balance,Coordination,Bed Mobility, Transfers,Gait,Activity Tolerance Progress Towards Slow Progress due to Pain,Slow Progress - Other Goals Assessment Summary Pt is moving right knee and leg mildly better this afternoon and is able to perform 3 stair training without buckling. Recommend HHPT and 24 hour superv at d/c. Right knee strength and range is pretty limited post-op right TKR. Goals Bed Mobility Goal Independent Transfer Goal Independent,Front Wheeled Walker Gait Goal Independent,Front Wheel Walker Gait Distance 75 Other Goals Pt will ascend and descend 3 steps facing right rail ascend with both hands on rail with no more than CGA to prepare for safe home entrance. Days to Meet Goals 2 Frequency of Treatment Frequency Of Twice a Day Treatment Treatment Plan Physical Therapy Bed Mobility Training,Transfer Training,Gait Training, Treatment Plan Therapeutic Exercise,Balance Retraining,Post Op Education,Discharge Planning,Hot or Cold Pack, Neuromuscular Re-ed,Coordination Retraining,Manual Therapy Weight Bearing Status Weight Bearing Weight Bear as Tolerated Status Recommendations To Nursing Amount of Assist 1 Person Assist Needed Discharge Recommendations PT Discharge Home with 31/12 Assist Available,Home Health Recommendations Transportation Needs Private Vehicle at Discharge - PT assist x1-2
--- NOTE | 2024-12-16 18:26 | PC.NURSE ---
Patient is medically cleared for discharge this a.m. per PA and surgeon, pending PT/OT evaluation. She is able to mobilize with X1 assist using FWW up to BR multiple times this shift. She is evaluated by PT this a.m. and per recommendations has friends return later in the day for caregiver training to give patient assistance at home. Patient is cleared for discharge with two friendsl. Per PT, vehicle of patient's friends being a large SUV would be more difficult for patient to get inside. Friends left approximatley 500 and returned about 1745 to transport patient home in her private vehicle. José Luis acknowledges undertstanding of d/c medications, activity limitations, site care, s/sx of infection/complication as well as follow up appointment. She is escorted via w/ch to private vehicle with all of her belongings at approximately 1800
--- NOTE | 2024-12-29 19:34 | PC.NURSE ---
12/16/24- late entry. Patient is given 5mg po oxycodone at 1745 per request cleared with MD Oliva to give for pain with activity increase during transportation home.
== END 2024-12-16 18:05 | disposition home or self-care (01) ==
LOC: OR 09:04 → AC 09:05
PROVIDERS: Family Provider Internal Medicine Geriatric Medicine; PCP Internal Medicine Geriatric Medicine; Referring Provider Orthopaedic Surgery; Visit Provider Orthopaedic Surgery
PROC: 0SRC0JZ Replacement of Right Knee Joint with Synthetic Substitute, Open Approach (ICD-10-PCS; CPT 27447; principal; 2024-12-15 10:45)
DX: M17.11 Unilateral primary osteoarthritis, right knee (principal); I10 Essential (primary) hypertension; G89.18 Other acute postprocedural pain; G62.9 Polyneuropathy, unspecified; Z85.3 Personal history of malignant neoplasm of breast; Z86.718 Personal history of other venous thrombosis and embolism
CPT/HCPCS: 27447; 20985; 64450; 36415; 73560; 85014; 85018; 97116; 97161; 97165; 97530; 97535; C1776; C1713; J0666; J0690; J1100; J2405; J2704; J3010; J3410